=== PATIENT | female | born 1970 | race Caucasian/White ===

== ENCOUNTER 2019-11-22 22:19 | Emergency (ER) | payer SELFPAY ==
[2019-11-23 00:38] LABS: HCG Qualitative,Urine Negative (Negative)
[2019-11-23 00:41] LABS: Bacteria,Urine 1+ /HPF (Negative); Bilirubin,Urine NEG (Negative); Blood,Urine LG (Negative); Color,Urine Yellow (Yellow); Mucus,Urine FEW /HPF; Urobilinogen,Urine < 2.0 mg/dL (<2.0)
[2019-11-23 00:51] LABS: RBC,Urine > 182.0 /HPF (0.0-6.0)
--- NOTE | 2019-11-23 04:25 | Emergency Department Report ---
ED Female HPI - General Chief complaint: Urogenital-Female Stated complaint: DYSURIA Time Seen by Provider: 11/23/19 04:19 Source: patient Mode of arrival: Ambulatory Limitations: No Limitations, Language Barrier - History of Present Illness Initial comments: 49-year-old female presents to the emergency room for urinary difficulty, dysuria and a small amount of blood in urine 2 days. Patient denies any history of kidney stones. Patient currently takes no medications on a daily basis has tried [id number] medication for urinary tract infection. She has no current allergies. Has urinary frequency and urgency no fever no chills no nausea no vomiting Complaint: dysuria Onset/Timin -: days(s) Location: suprapubic Severity scale (0 -10): 3 Quality: aching, other (pressure) Improves with: none Worsens with: urination Are you Now?: No - Related Data Home Medications Medication Instructions Recorded Confirmed Last Taken Vits96/Iron Fum/Folic 1 each PO QDAY 08/27/13 08/27/13 08/27/13 [ Tablet] Previous Rx's Medication Instructions Recorded Last Taken Type Ondansetron [Zofran] 4 mg PO ONCE #20 tablet 08/28/13 Unknown Rx Nitrofurantoin Woods/M-Cryst 100 mg PO Q12HR 10 Days #20 capsule 11/23/19 Unknown Rx [Macrobid CAP] Allergies Allergy/AdvReac Type Severity Reaction Status Date / Time No Known Allergies Allergy Verified 08/27/13 22:33 ED Review of Systems ROS: Stated complaint: DYSURIA Other details as noted in HPI Comment: All other systems reviewed and negative ED Past Medical Hx - Past Medical History Previous Medical History?: No - Surgical History Past Surgical History?: No - Social History Smoking Status: Never Smoker Substance Use Type: None - Medications Home Medications: Home Medications Medication Instructions Recorded Confirmed Last Taken Type Vits96/Iron Fum/Folic 1 each PO QDAY 08/27/13 08/27/13 08/27/13 History [ Tablet] Ondansetron [Zofran] 4 mg PO ONCE #20 tablet 08/28/13 Unknown Rx Nitrofurantoin Woods/M-Cryst 100 mg PO Q12HR 10 Days #20 capsule 11/23/19 Unknown Rx [Macrobid CAP] ED Physical Exam - General Limitations: No Limitations, Language Barrier General appearance: alert, in no apparent distress - Head Head exam: Present: atraumatic, normocephalic - Eye Eye exam: Present: normal appearance - ENT ENT exam: Present: mucous membranes moist - GI/Abdominal GI/Abdominal exam: Present: soft, tenderness. Absent: distended, guarding, rebound - Back Exam Back exam: Absent: CVA tenderness (R), CVA tenderness (L) - Neurological Exam Neurological exam: Present: alert, oriented X3, normal gait - Psychiatric Psychiatric exam: Present: normal affect, normal mood - Skin Skin exam: Present: warm, dry, intact, normal color. Absent: rash ED Course Vital Signs 11/22/19 22:23 Temperature 97.5 F L Pulse Rate 107 H Respiratory 13 Rate Blood Pressure 138/95 O2 Sat by Pulse 98 Oximetry ED Medical Decision Making - Medical Decision Making 49-year-old female presents to the emergency room for urinary difficulty, dysuria and a small amount of blood in urine 2 days. Patient denies any history of kidney stones. Patient currently takes no medications on a daily basis has tried [id number] medication for urinary tract infection. She has no current allergies. Has urinary frequency and urgency no fever no chills no nausea no vomiting. Urine appears to have the infection. Will treat patient with Macrobid 100 mg by mouth twice a day discussed patient to decrease her consumption of Coca-Cola and increase her consumption of water. Patient verbalized understanding Critical care attestation.: If time is entered above; I have spent that time in minutes in the direct care of this critically ill patient, excluding procedure time. ED Disposition Clinical Impression: UTI (urinary tract infection), Acute pelvic pain, female Disposition: -01 TO HOME OR SELFCARE Is pt being admited?: No Does the pt Need Aspirin: No Condition: Stable Instructions: Urinary Tract Infection in Women (ED) Additional Instructions: Complete antibiotics as prescribed. Decrease your consumption of Coca-Cola as and increase her consumption of water. Prescriptions: Nitrofurantoin Woods/M-Cryst [Macrobid CAP] 100 mg PO Q12HR 10 Days #20 capsule Referrals: ROSELYN SURESH MD [Primary Care Provider] - 3-5 Days
[2019-11-23 04:34] VITALS: BP 128/85
== END 2019-11-23 04:34 | disposition home or self-care (01) ==
LOC: ED 22:19
DX: N39.0 Urinary tract infection, site not specified (principal); R10.2 Pelvic and perineal pain; Z79.899 Other long term (current) drug therapy
CPT/HCPCS: 81001; 81025; 87076; 87086; 87186